=== PATIENT | female | born 1955 ===

== ENCOUNTER 2025-08-09 13:51 | Outpatient (CLI) | payer MEDICARE | END 2025-08-09 13:52 | disposition home or self-care (01) | LOC: SCSBT 13:51 | PROVIDERS: ATTEND Obstetrics & Gynecology | DX: Z01.419 Encounter for gynecological examination (general) (routine) without abnormal findings (principal); M81.0 Age-related osteoporosis without current pathological fracture; N95.1 Menopausal and female climacteric states | CPT/HCPCS: 77080 ==